=== PATIENT | male | born 1955 | race Caucasian/White ===

== ENCOUNTER 2022-03-29 11:19 | Outpatient (CLI) | payer MEDICARE, SELFPAY ==
[2022-03-29 13:29] LABS: Chloride* 106 mmol/L (96-114)
[2022-03-29 13:30] LABS: Potassium* 4.7 mmol/L (3.6-5.1); Sodium* 139 mmol/L (135-149)
[2022-03-29 13:32] LABS: Creatinine* 0.9 mg/dL (0.5-1.5); Estimated Glomerular Filt Rate 94 ml/min
[2022-03-29 13:33] LABS: Blood Urea Nitrogen* 21 mg/dL (7-30); Calcium* 9.4 mg/dL (8.4-10.6); Carbon Dioxide* 29 mmol/L (20-32); Glucose* 117 mg/dL (60-115); HDL Cholesterol* 54 mg/dL (>=40); Triglycerides* 81 mg/dL (40-149)
[2022-03-30 18:54] LABS: Cholesterol* 170 mg/dL (90-199); LDL Cholesterol Calculated 100 mg/dL (<100)
== END 2022-03-29 11:20 | disposition home or self-care (01) ==
PROVIDERS: PCP Emergency Medicine; Visit Provider Emergency Medicine
DX: Z00.00 Encounter for general adult medical examination without abnormal findings (principal); R73.01 Impaired fasting glucose; E78.5 Hyperlipidemia, unspecified; R03.0 Elevated blood-pressure reading, without diagnosis of hypertension; Z12.5 Encounter for screening for malignant neoplasm of prostate
CPT/HCPCS: 80048; 80061; 84153

== ENCOUNTER 2023-04-05 08:12 | Outpatient (CLI) | payer MEDICARE, SELFPAY | END 2023-04-05 08:13 | disposition home or self-care (01) | PROVIDERS: PCP Emergency Medicine; Visit Provider Emergency Medicine | DX: Z01.818 Encounter for other preprocedural examination (principal); E78.5 Hyperlipidemia, unspecified; I10 Essential (primary) hypertension | CPT/HCPCS: 80048; 80061 ==

== ENCOUNTER 2024-01-03 08:46 | Outpatient (CLI) | payer MEDICARE, SELFPAY | END 2024-01-03 08:47 | disposition home or self-care (01) | PROVIDERS: PCP Emergency Medicine; Visit Provider Emergency Medicine | DX: Z00.00 Encounter for general adult medical examination without abnormal findings (principal); I10 Essential (primary) hypertension; R03.0 Elevated blood-pressure reading, without diagnosis of hypertension; E78.5 Hyperlipidemia, unspecified; R73.01 Impaired fasting glucose; Z12.5 Encounter for screening for malignant neoplasm of prostate | CPT/HCPCS: 80048; 80061; G0103 ==

== ENCOUNTER 2024-05-20 06:21 | Outpatient (CLI) | payer MEDICARE, SELFPAY ==
--- NOTE | 2024-05-20 07:49 | P.ANES_ITS ---
Anesthesia Charges Start Date/Time Anesthesia Start Date: 05/20/24 Anesthesia Start Time: 07:22 Stop Date/Time Anesthesia Stop Date: 05/20/24 Anesthesia Stop Time: 07:45 Summary Extremes of Age - Over 70 or under 1: SPOUT POSITIONER Coding CPT Codes CPT Codes: ALEXA LWR INTST NDSC NOS - 38449 ([id number]) P2 - PATIENT W/MILD SYST DISEASE, QK - DISTANCE EDUCATION COORDINATOR 2-4 CNCRNT ANEChristy PROC, QX - SPOUT POSITIONER SVC W/ MD MED DIRECTION Additional Codes: Summary - Extremes of Age - Over 70 or under 1: SPOUT POSITIONER ([id number])
--- NOTE | 2024-05-20 07:49 | W.ANESCHARGE ---
Anesthesia Charges Start Date/Time Anesthesia Start Date: 05/20/24 Anesthesia Start Time: 07:22 Stop Date/Time Anesthesia Stop Date: 05/20/24 Anesthesia Stop Time: 07:45 Summary Extremes of Age - Over 70 or under 1: ELECTRIC MOTOR ANALYST Coding CPT Codes CPT Codes: ALEXA LWR INTST NDSC NOS - 77469 ([id number]) P2 - PATIENT W/MILD SYST DISEASE, QK - HEALTH INSURANCE SALES AGENT 2-4 CNCRNT ANEChristy PROC, QX - ELECTRIC MOTOR ANALYST SVC W/ MD MED DIRECTION Additional Codes: Summary - Extremes of Age - Over 70 or under 1: ELECTRIC MOTOR ANALYST ([id number])
--- NOTE | 2024-05-20 07:51 | W.ANESCHARGE ---
Anesthesia Charges Start Date/Time Anesthesia Start Date: 05/20/24 Anesthesia Start Time: 07:22 Stop Date/Time Anesthesia Stop Date: 05/20/24 Anesthesia Stop Time: 07:45 Summary Extremes of Age - Over 70 or under 1: MDA Coding CPT Codes CPT Codes: ANES LWR INTST NDSC NOS - [id number] ([id number]) QK - HEALTH POLICY MANAGER 2-4 CNCRNT ANES PROC, QX - FURNITURE INSPECTOR SVC W/ MD MED DIRECTION, P2 - PATIENT W/MILD SYST DISEASE Additional Codes: Summary - Extremes of Age - Over 70 or under 1: MDA ([id number])
== END 2024-05-20 06:22 | disposition home or self-care (01) ==
LOC: OP CLINIC 06:22
PROVIDERS: PCP Emergency Medicine; Visit Provider Internal Medicine
DX: Z12.11 Encounter for screening for malignant neoplasm of colon (principal); Z86.0100 Personal history of colon polyps, unspecified; D12.5 Benign neoplasm of sigmoid colon; K57.30 Diverticulosis of large intestine without perforation or abscess without bleeding
CPT/HCPCS: 00811; 45385; 88305; 99100; J2405; J2704